=== PATIENT | female | born 1990 | race Caucasian/White ===

== ENCOUNTER 2016-12-19 17:33 | Emergency (ER) | payer BC ==
[~2016-12-19] VITALS: Ht 162.6 cm; Wt 75.0 kg
--- NOTE | 2016-12-19 19:14 | NUR ---
REPORT GIVEN & CARE TSF TO Linus GROVER RN. CL
[2016-12-19] MEDS ORDERED: NS IV 500 ML 500 ML IV SCH (19:20)
[2016-12-19] MEDS ORDERED: ONDANSETRON 2 MG/ML (Z0FRAN) 2 ML VIAL IV ONE (19:20)
[2016-12-19] MEDS ORDERED: KETOROLAC 30 MG/ML (TORADOL) 1 ML VIAL IV ONE (19:20)
[2016-12-19 19:30] LABS: BASOPHILS % (AUTO) 0 % (0-2); EOSINOPHILS # (AUTO) 0.2 10^3uL; EOSINOPHILS % (AUTO) 2 % (0-4); LYMPHOCYTES # (AUTO) 3.1 X10^3; MEAN CORPUSCULAR HEMOGLOBIN 28.7 PG (26.0-34.0); MEAN CORPUSCULAR HGB CONC 33.8 g/dL (31.0-37.0); MEAN CORPUSCULAR VOLUME 85 FL (80-100); MEAN PLATELET VOLUME 9.8 FL (6.0-9.5); MONOCYTES # (AUTO) 0.7 X10^3; MONOCYTES % (AUTO) 8 % (3-11); NEUTROPHILS # (AUTO) 4.2 X10^3; NEUTROPHILS % (AUTO) 51 % (51-67); PLATELET COUNT 388 10^3uL (150-450); WHITE BLOOD COUNT 8.14 10^3uL (4.0-11.0)
[2016-12-19 19:30] LABS: BILIRUBIN,URINE Negative (Negative); CLARITY,URINE Clear; GLUCOSE, URINE (UA) Negative (Negative); LEUKOCYTE ESTERASE ,URINE Trace (Negative); UROBILINOGEN,URINE 0.2 mg/dL (0.2-1.0)
[2016-12-19 19:31] LABS: COLOR,URINE Light Yellow
[2016-12-19 19:34] LABS: ALBUMIN 4.5 g/dL (3.4-5.0); ANION GAP 15.3 MEQ/L (3-15); TOTAL PROTEIN 8.3 g/dL (6.4-8.5)
[2016-12-19 19:40] LABS: URINE CENTRIFUGED VOLUME 12 mL
[2016-12-19 19:41] LABS: RBC,URINE 0-2 /HPF
[2016-12-19] MEDS ORDERED: BELLADONNA/PHENOBARBITAL ELIXIR (DONNATAL) 10 ML UDC ONE (20:09)
[2016-12-19] MEDS ORDERED: MAG HYDROX/AL HYDROX/SIMETH 400-400-40/5 ML (MAG-AL PLUS XS) 30 ML UDC ONE (20:09)
[2016-12-19] MEDS ORDERED: LIDOCAINE 2% VISCOUS 20ML UDC PO ONE (20:09)
[2016-12-19] MEDS ORDERED: GI COCKTAIL 55 ML UDC PO ONE (20:10)
[2016-12-19] MEDS ORDERED: SUCRALFATE 1 GM (CARAFATE) TAB PO ONE (20:35)
[2016-12-19] MEDS ORDERED: ED- HYDROcodone/ACETAMINOPHEN 5MG/325MG (NORCO) 6 TABLETS/BTL PO ONE (20:35)
[2016-12-19] MEDS ORDERED: ED- ONDANSETRON ODT 4 MG (ZOFRAN) 4 TABLETS/BTL PO ONE (20:35)
[2016-12-19 20:53] VITALS: BP 101/71
== END 2016-12-19 20:56 | disposition home or self-care (01) ==
LOC: ED 17:34
DX: R10.12 Left upper quadrant pain (principal)
CPT/HCPCS: 36415; 80053; 81003; 81015; 82150; 83690; 84443; 85025; 86140; 87088; 96361; 96374; 96375; 99284; J1885; J2405; J7040; 99283

== ENCOUNTER → 2017-02-01 | Outpatient (CLI) | payer BC ==
[~2017-02-01] MED LIST: FAMO40TA72 PO; HC2.5C30 PR; HYDR-3702 PO; IBUP-15 PO; LANS15CA3 GT; NORE-79 PO; OMEP40CA36 PO; ONDA4TAB8 PO; PREN-108 PO; SUCR1TAB29 PO; birth control pills PO
--- NOTE | 2017-02-01 09:54 | Diagnostic Imaging Report ---
PROCEDURE: US PELVIC (NON OB) TECHNIQUE: Multiple real-time grayscale images were obtained over the pelvis in various projections transabdominally. Indication: Pelvic pain. Comparison: None. Discussion: Transabdominal sonographic evaluation of the pelvis was performed. The uterus is normal in echotexture and size measuring 8.1 x 4.0 x 4.0 cm. Normal endometrial thickness measuring 1.1 cm. The ovaries appear normal in echotexture and size bilaterally with normal color Doppler blood flow. The right ovary measures 2.1 x 1.8 x 2.0 cm. The left ovary measures 2.3 x 1.4 x 1.4 cm. No abnormal adnexal mass or fluid. Impression: 1. Unremarkable pelvic ultrasound. Dictated by: Dictated on workstation # [id number]
--- NOTE | 2017-02-01 09:54 | Diagnostic Imaging Report ---
PROCEDURE: US abdomen complete. TECHNIQUE: Multiple real-time grayscale images were obtained over the abdomen in various projections. Indication: Epigastric pain. Comparison: None. Discussion: Sonographic evaluation of the abdomen was performed. Hyperechoic solid nodule within the right hepatic lobe measures 1.4 cm. Findings are indeterminate though could represent a small hemangioma. At a minimum, recommend 3-6 month sonographic followup to document stability. Otherwise, more definitive evaluation could be performed with multiphase contrast-enhanced CT or MRI of the abdomen as clinically indicated. The liver is otherwise normal in echotexture and size. The main portal vein is normal in caliber with normal hepatopedal blood flow. The gallbladder appears normal without evidence of cholelithiasis, wall thickening, or pericholecystic fluid. No evidence of intra or extrahepatic biliary duct dilatation. The common bile duct is normal measuring 0.2 cm. The pancreas appears normal as visualized. The spleen appears normal in echotexture and size measuring 11 cm. The visualized aorta and IVC appear within normal limits. The bilateral kidneys appear normal in echotexture and size without evidence of hydronephrosis or renal mass. The right kidney measures 10.8 cm. The left kidney measures 10.3 cm. There is no ascites or abnormal bowel loops identified. No sonographic Monae sign was reported. Impression: 1. Hyperechoic solid nodule within the right hepatic lobe measures 1.4 cm and is indeterminate by ultrasound. Differential diagnosis would include a hemangioma though other etiologies, including malignancy, cannot be entirely excluded given there is no previous comparison imaging. At a minimum, recommend short-term sonographic followup to document stability. More definitive evaluation could be performed with contrast-enhanced multiphase CT or MRI of the abdomen as clinically indicated. Dictated by: Dictated on workstation # [id number]
== END ==
LOC: RAD 08:50
PROVIDERS: ATTEND Physician Assistant
DX: R10.32 Left lower quadrant pain (principal); R10.2 Pelvic and perineal pain; R10.13 Epigastric pain; K76.89 Other specified diseases of liver
CPT/HCPCS: 76700; 76856